=== PATIENT | female | born 1950 | race Caucasian/White ===

== ENCOUNTER 2016-05-09 07:17 | Day surgery (SDC) | payer OTHER ==
[~2016-05-09] VITALS: Ht 160 cm; Wt 175.0 kg
[~2016-05-09 07:17] MED LIST: ATOR20TA PO; BUPR150T8 PO; CALC600T12 PO; LISI-608 PO; Lactated Ringer's 1,000 ML IV ONE; MULT-666 PO; OXYC-474 PO; [UNRECOGNIZED DRUG - CODE] PO
[2016-05-09] MEDS ORDERED: Propofol 10,000 mCg/mL 20 mL Inj ONE (07:18)
[2016-05-09 07:44] VITALS: BP 110/71; PULSE 78; RESP 14; O2SAT 98
--- NOTE | 2016-05-09 07:52 | PCM.HPANE ---
Patient Data Surgeon Admitting Provider: Attending Provider:Sae Yoder MD Primary Care Physician:Isaiah Luna DO Other Provider:[facility] Anesthesia Reason for Visit Benign Neoplasm Of Colon Ht/WT & BMI Height (Feet): 5 Height (Inches): 3 Weight (Kilograms): 175 Body Mass Index 68.00 Allergies Coded Allergies: Penicillins (Verified Allergy, Mild, 05/08/16) Sulfa (Sulfonamide Antibiotics) (Verified Allergy, Mild, rash, 05/08/16) povidone-iodine (Verified Allergy, Mild, 05/08/16) soap (Verified Allergy, Mild, 05/08/16) Past Anesthesia History Anesthesia History: Denies:: Abnormal Airway, Anesthesia Reactions, Difficult Intubation, Fam Anesthesia Reaction, Fam Malignant Hypertherm, Malignant Hyperthermia Diabetes History Hx Diabetes?: No MRSA MRSA: No Medications Home Meds Incl Beta Lucas: No Reported Medications Bupropion ER (Wellbutrin SR)150 Mg Tablet.er150 Mg PO BID Ref 0 05/08/16 Oxycodone (Roxicodone)5 Mg Tablet5 Mg PO Q4H PRN For Pain Ref 0 05/08/16 Multivitamin (Once Daily)1 Each Tablet1 Each PO DAILY 05/08/16 Lisinopril/HCTZ 20-25 mg (Zestoretic 20-25 mg)1 Each Tablet1 Each PO DAILY Ref 0 05/08/16 Calcium Carbonate (Calcium)600 Mg [id number] Mg PO DAILY 05/08/16 Atorvastatin (Lipitor)20 Mg [id number] Mg PO DAILY Ref 0 05/08/16 History HEENT History: Denies:: Abnormal Airway Difficult Intubation Dysphagia Hearing Problem Denture Type: Partial- Upper Hx of Heart Problems?: Yes Cardiovascular History: Positive for:: Hypertension Denies:: AICD Pacemaker Valvular Heart Disease Hx of Respiratory Problem?: No Neurological History: Denies:: CVA Hx of GI Problems?: Yes Gastrointestinal History: Denies:: Cirrhosis Diverticulitis Gall Bladder Disease Gastroesphageal Reflux Hiatal Hernia Liver Disease Rectal Bleeding Hx Surgeries?: No Hx Any Other Health Problems?: No Hx Diabetes: No Hx Alcohol Use: No Stop/Bang Treated for Sleep Apnea?: Yes Do You Have a CPAP Machine?: Yes (doesnt use) STEPHEN Risk Assessment: High Risk, =/>3 Yes Risk Assessment Category Category 1A: Patient has history of documented sleep apnea, and HAS NOT received any narcotic, sedative or anesthesia administration during this stay. Category 1B: Patient has history of documented sleep apnea, and HAS received any narcotic , sedative or anesthesia administration during this stay Category 2: Patient has SUSPECTED Obstructive Sleep Apnea, and HAS received any narcotic , sedative or anesthesia administration during this stay. Category 3: Patient has SUSPECTED Obstructive Sleep Apnea and HAS NOT received narcotic, sedative or anesthesia administration during this stay. Category 4: Outpatient in Procedural Areas with known sleep apnea or who screen positive for High Risk via the STOP/BANG questionnaire. Exam Exam Vital Signs Vital Signs Date Time Temp Pulse Resp B/P Pulse Ox O2 Delivery O2 Flow Rate FiO2 05/09/16 07:44 78 14 110/71 98 Room Air General Appearance: Oriented X3 HEENT/AIRWAY: MP 2 Lungs: Normal Air Movement Heart: Regular Rate/Rhythm Plan Impression Patient chart reviewed, patient interviewed and anesthestic plan with risks, benefits, and alternatives discussed, and informed consent obtained. ASA Physical Status: ASA2 Mod Systemic Disease Anesthetic Plan: MAC Bene/Risks/Altern/Consents: Yes HP Complete Prior to Induction: Yes Fernando Contreras MD May 09, 2016 07:52
[2016-05-09] MEDS ORDERED: Lactated Ringer's 1,000 ML IV SCH (07:53)
[2016-05-09] MEDS ORDERED: MetoCLOpramide 5 mg/mL 2 mL Inj IVPUSH PRN (07:55)
[2016-05-09] MEDS ORDERED: Ondansetron 2 mg/mL 2 mL Inj IVPUSH PRN (07:55)
--- NOTE | 2016-05-09 08:26 | PCM.ENDCOL ---
Colonoscopy Date of Service: May 09, 2016 Physician Sae Yoder MD Pre Procedure Diagnosis: Screening personal history of colon polyps Post Procedure Dx & Findings: Polyp hemorrhoids diverticuli Procedure Colonoscopy Prep adequate Withdrawal time 16 minutes After unremarkable rectal examination the Olympus video colonoscope was inserted patient's anal canal and was advanced to cecum. Landmarks were identified including the ileocecal valve and appendiceal orifice. Scope was withdrawn systematically. Visualized colonic mucosa showed healthy shiny mucosa with normal healthy-appearing vasculature. In the cecum, we saw a 5 mm polyp which was removed completely using cold snare. In the transverse colon, there was a 3 mm polyp which was removed completely using cold snare. In the descending colon, there were 2 polyps. These were about 2 mm in size which were removed completely using cold snare. In the sigmoid colon there was a 1 mm polyp which was removed completely using cold forceps. In the sigmoid colon and up to the transverse colon there are a few small isolated diverticuli. In the rectum retroflexion was done which showed hemorrhoids. Anal canal was inspected carefully on the way out and hemorrhoids noted. Impression Polyps 5 status post complete removal Diverticuli Personal history of colon polyps Hemorrhoids Recommendation Repeat colonoscopy 3 years Diverticular diet Presedation Assessment Risks and Benefits Informed consent was obtained from the patient after all risks and benefits including but not limited to drug reaction, infection, pain, bleeding, perforation, as well as alternatives were discussed. Patient monitoring Continuous pulse oximetry, cardiac monitoring, blood pressure monitoring, IV access, and oxygen at 2L per nasal cannula. Complications There were no periprocedural complications identified. Post Procedure Plan Post Procedure Recommendations 1. Restrict activities today. 2. Resume normal activities in the morning. 3. Resume medications. 4. Patient informed of normal post procedure side effects as bloating, drowsiness, blood streaking in the stool. 5. average risk CRCS. If colon polyps come back as: -Hyperplastic- can repeat colonoscopy in 10 years -Tubular adenoma- repeat colonoscopy in 5 years -Tubulovillous/villous adenoma- repeat colonoscopy in 3 years -If any dysplasia- return to clinic as soon as possible 6. Please don't hesitate to call me with any questions. Sae Yoder MD May 09, 2016 08:26
[2016-05-09 08:30] VITALS: BP 105/76; PULSE 83; RESP 14; O2SAT 97
--- NOTE | 2016-05-09 08:34 | PCM.ANEP1 ---
Post Anesthesia Phase 1 PACU Phase 1 Assessment Date of Service: May 09, 2016 Vital Signs Vital Signs Date Time Temp Pulse Resp B/P Pulse Ox O2 Delivery O2 Flow Rate FiO2 05/09/16 08:30 83 14 105/76 97 Room Air 05/09/16 07:44 78 14 110/71 98 Room Air Anesthetic Administered: MAC Level of Alertness: Awake, talking Pain: No Nausea or Vomiting: No Oxygen Delivery: Room Air Lungs: Normal Air Movement Fernando Contreras MD May 09, 2016 08:34
--- NOTE | 2016-05-09 08:34 | PCM.ANEP2 ---
Post Anesthesia Evaluation ASA/CMS Post Anesthesia VS in Patient's Normal Range?: Yes Resp Stable; Airway Patent?: Yes CV Function & Hydration Stable: Yes Mental Status Recovered?: Yes Pain control Satisfactory?: Yes N/V Control Satisfactory?: Yes Fernando Contreras MD May 09, 2016 08:34
[2016-05-09 08:40] VITALS: BP 133/79; PULSE 77; RESP 14; O2SAT 98
[2016-05-09 08:49] VITALS: BP 119/69; PULSE 73; RESP 14; O2SAT 100
[2016-05-09 08:59] VITALS: BP 121/73; PULSE 64; RESP 16; O2SAT 64
--- NOTE | 2016-05-10 14:37 | PATH ---
SURGICAL PATHOLOGY Attending Physician:Sae Yoder M.D. CASE STATUS: Signed Out PATIENT NAME: PEMA HERNANDEZ PID: [id number] : 1950 DATE COLLECTED:05/09/2016 20:50 SPECIMEN: 1: Colon, Biopsy 2: Colon, Biopsy 3: Colon, Biopsy 4: Colon, Biopsy CLINICAL HISTORY: 1). CECUM POLYP 2). TRANSVERSE POLYP 3). DESCENDING POLYPS 4). 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 2.TRANSVERSE COLON POLYP: SESSILE SERRATED ADENOMA INVOLVING ALL BIOPSY FRAGMENTS. 3.DESCENDING COLON POLYPS: TUBULAR ADENOMA INVOLVING SINGLE BIOPSY FRAGMENT. HYPERPLASTIC POLYP INVOLVING SINGLE BIOPSY FRAGMENT. 4.SIGMOID COLON POLYP: HYPERPLASTIC POLYP. ICD10 code D12.0 GROSS DESCRIPTION: The specimen is received in four formalin filled containers labeled with the patient's name. 1). The specimen is sublabeled "cecum polyp" and consists of multiple portions of tissue which aggregate to 0.7 x 0.7 x 0.4 CM. The specimen is entirely submitted in cassette 1A. 2). The specimen is sublabeled "polyp transverse" and consists of 3 portions of tissue which aggregate to 0.5 x 0.5 x 0.3 CM. The specimen is entirely submitted in cassette 2A. 3). The specimen is sublabeled "descending polyp" and consists of 2 portions of tissue which aggregate to 0.4 x 0.4 x 0.3 CM. The specimen is entirely submitted in cassette 3A. 4). The specimen is sublabeled "sigmoid polyp" and consists of a 0.2 x 0.2 x 0.2 CM portion of tissue which is entirely submitted in cassette 4A. 05/09/2016 [facility] [place] MICRO DESCRIPTION: See diagnosis. ICD-9 CODES: CPT CODES: 1: 82821 2: 65134 3: 76187 4: 11845 Electronically Signed Out Des Pena MD [facility] Pathology [facility], [place] [address] Technical component performed at [facility], [facility] [address], [place], [address]
== END 2016-05-09 23:59 | disposition home or self-care (01) ==
LOC: END 07:17 → MERGE 07:17 → END 23:59
PROVIDERS: ATTEND Internal Medicine
DX: Z12.11 Encounter for screening for malignant neoplasm of colon (principal); Z86.010 Personal history of colon polyps; D12.0 Benign neoplasm of cecum; D12.3 Benign neoplasm of transverse colon; D12.4 Benign neoplasm of descending colon; K57.30 Diverticulosis of large intestine without perforation or abscess without bleeding; K64.9 Unspecified hemorrhoids; I10 Essential (primary) hypertension
CPT/HCPCS: 45380; 45385; J7120